=== PATIENT | male | born 1960 | race Hispanic/Latino ===

== ENCOUNTER 2018-01-29 21:52 | Emergency (ER) | payer OTHER, BC ==
[2018-01-29 22:13] VITALS: BP 132/75; PULSE 78; RESP 18; TEMP 98.3; O2SAT 99
--- NOTE | 2018-01-29 23:01 | ED PDOC ---
HPI: General Adult Time Seen by Provider: 01/29/18 22:18 Chief Complaint (Nursing): GI Problem Chief Complaint (Provider): Constipation History Per: Patient History/Exam Limitations: no limitations Onset/Duration Of Symptoms: Days (x1) Current Symptoms Are (Timing): Still Present Additional Complaint(s): Sudeep De Los Santos, a 57 year old male with a past medical history of hypertension, presents to the ED complaining of constipation associated with rectal pain and pressure when trying to move bowels onset x1 day. Patient reports his last bowel movement was x2 days. He denies a history of constipation, nausea, vomiting, and abdominal pain, and he reports having a normal appetite. Prior to arrival he attempted to administer an enema at home but was unsuccessful. PCP: none provided Past Medical History Reviewed: Historical Data, Nursing Documentation, Vital Signs Vital Signs: Last Vital Signs Temp 98.3 F 01/29/18 22:09 Pulse 78 01/29/18 22:09 Resp 18 01/29/18 22:09 BP 132/75 01/29/18 22:09 Pulse Ox 99 01/29/18 22:09 - Medical History PMH: HTN - Family History Family History: States: Unknown Family Hx - Home Medications Home Medications: Ambulatory Orders Medication Instructions Recorded Docusate [Colace] 100 mg PO BID PRN #20 cap 01/30/18 - Allergies Allergies/Adverse Reactions: Allergies Allergy/AdvReac Type Severity Reaction Status Date / Time No Known Allergies Allergy Verified 01/29/18 22:09 Review of Systems ROS Statement: Except As Marked, All Systems Reviewed And Found Negative Gastrointestinal: Positive for: Constipation (associated with rectal pain and pressure when trying to move bowels. last bowel movement x2 days). Negative for: Nausea, Vomiting, Abdominal Pain Physical Exam - Reviewed Nursing Documentation Reviewed: Yes Vital Signs Reviewed: Yes - Physical Exam Appears: Positive for: Well, No Acute Distress Head Exam: Positive for: ATRAUMATIC, NORMAL INSPECTION, NORMOCEPHALIC Skin: Positive for: Normal Color, Warm, Dry Eye Exam: Positive for: Normal appearance, EOMI Cardiovascular/Chest: Positive for: Regular Rate, Rhythm. Negative for: Murmur Respiratory: Positive for: Normal Breath Sounds. Negative for: Respiratory Distress Gastrointestinal/Abdominal: Positive for: Normal Exam Back: Positive for: Normal Inspection Extremity: Positive for: Normal ROM. Negative for: Deformity Neurologic/Psych: Positive for: Alert, Oriented - ECG O2 Sat by Pulse Oximetry: 99 (RA) Pulse Ox Interpretation: Normal Medical Decision Making Medical Decision Making: Time: 22:40 Impression: 57 year old male with constipation Initial plan: --abdominal x-ray --enema Time: 00:47 --Upon provider reevaluation, patient is medically stable, reports markable improvement in symptoms after large BM. Patient will be discharged home with Rx for Colace 100mg. Counseling was provided and all questions were answered regarding diagnosis. There is agreement to discharge plan. Return if symptoms persist or worsen. Clinical Impression: Constipation ----- Scribe Attestation: Documented by Wilfredo Spcier and Alondra Manriquez, acting as scribes for Ady Graves MD. Provider Scribe Attestation: All medical record entries made by the Scribe were at my direction and personally dictated by me. I have reviewed the chart and agree that the record accurately reflects my personal performance of the history, physical exam, medical decision making, and the department course for this patient. I have also personally directed, reviewed, and agree with the discharge instructions and disposition. Disposition - Clinical Impression Clinical Impression: Constipation - Patient ED Disposition Is Patient to be Admitted: No Counseled Patient/Family Regarding: Studies Performed, Diagnosis, Need For Followup, Rx Given - Disposition Disposition: Routine/Home Disposition Time: 00:47 Condition: STABLE Prescriptions: Docusate [Colace] 100 mg PO BID PRN #20 cap PRN Reason: Constipation Instructions: Constipation in Adults Forms: [employer] (Telugu)
--- NOTE | 2018-01-30 16:52 | RAD ---
Date of service: 01/29/2018 HISTORY: constipation COMPARISON: None available. FINDINGS: BOWEL: Nonobstructive bowel gas pattern identified. Mildly prominent retained fecal material scattered throughout the large bowel, limited at the rectum. No gross free intrarenal gas or suspicious abdominal calcifications. BONES: Normal. OTHER FINDINGS: None. IMPRESSION: Potential limited constipation. Nonobstructive bowel gas pattern.
== END 2018-01-30 01:08 | disposition home or self-care (01) ==
LOC: H.ER 21:52
DX: K59.00 Constipation, unspecified (principal); I10 Essential (primary) hypertension; K62.89 Other specified diseases of anus and rectum